=== PATIENT | female | born 1935 | race Caucasian/White ===

== ENCOUNTER → 2016-10-11 | Outpatient (CLI) | payer MEDICARE, OTHER ==
--- NOTE | 2016-10-11 11:28 | Diagnostic Imaging Report ---
INDICATION: Diagnostic right breast mammograms to reevaluate calcifications within the right breast noted on prior screening mammography. COMPARISON: 09/19/2016, 03/22/2014, and 12/02/2012. The current study was also evaluated with a Computer Aided Detection (CAD) system. FINDINGS: True lateral and spot magnification digital mammographic views of the right breast were obtained. The breast tissue is heterogeneously dense, which may lower the sensitivity of mammography. The previously noted cluster of microcalcifications within the middle depth of the right breast at 6 o'clock is again identified. These microcalcifications are mildly heterogeneous with several being round. These microcalcifications have increased since the prior examinations. Benign vascular calcifications are identified within the superior right breast. No additional suspicious mass, microcalcifications, or architectural distortion. IMPRESSION: Developing microcalcifications within the middle depth of the right breast at 6 o'clock remain indeterminate and are, therefore, suspicious of malignancy. Therefore, stereotactic-guided biopsy is recommended. BI-RADS category 4: Suspicious of malignancy, stereotactic guided biopsy is recommended. Result letter will be mailed to the patient. Findings discussed with patient at time of the examination. Follow-up: Stereotactic-guided biopsy of the right breast is recommended at this time. NOTE: Keep in mind that about 10% of breast cancers will not be identified on mammography. Further evaluation of a palpable mass not seen on mammography should be based on clinical grounds. Report was stat faxed to office of Dr. Roger @ 11:26 AM/sanjeev. Dictated by: Dictated on workstation # [id number]
== END ==
LOC: RAD 08:47
PROVIDERS: ATTEND Family Medicine
DX: R92.0 Mammographic microcalcification found on diagnostic imaging of breast (principal)

== ENCOUNTER → 2016-10-31 | Outpatient (CLI) | payer MEDICARE, OTHER ==
[2016-10-31 11:42] LABS: ANION GAP 11.1 MEQ/L (3-15)
== END ==
LOC: LAB 11:09
PROVIDERS: ATTEND Nurse Practitioner Family
DX: E55.9 Vitamin D deficiency, unspecified (principal)
CPT/HCPCS: 36415; 80048; 82306